=== PATIENT | female | born 1990 | race Caucasian/White ===

== ENCOUNTER 2020-04-05 08:31 | Emergency (ER) | payer OTHER ==
[~2020-04-05] VITALS: Ht 175.3 cm; Wt 113.4 kg
[~2020-04-05 08:31] MED LIST: BACTRIM DS TAB1 EACH PO; CORTIZONE-1028 GM TP; HYDROCODONE-AP1 EAC6 PO; IBUPROFEN 800800 M1 PO; KEFLEX500 MG PO; NOHOMEMEDICATIONS; NORCO 5-325 TA1 EACH PO; ULTRAM 50MG TAB50 MG PO; VICODIN 5-5001 EACH PO; ZOFRAN 4 MG ORAL4 M1 DIS
[2020-04-05 09:13] LABS: INFLUENZA A ANTIGEN Negative (Negative); INFLUENZA B ANTIGEN Negative (Negative)
[2020-04-05 10:25] VITALS: BP 138/73
== END 2020-04-05 10:25 | disposition home or self-care (01) ==
LOC: M.ERS 08:31
PROVIDERS: Personal Emergency Response Attendant
DX: J06.9 Acute upper respiratory infection, unspecified (principal); Z88.6 Allergy status to analgesic agent; Z91.018 Allergy to other foods